=== PATIENT | female | born 1940 | race Caucasian/White ===

== ENCOUNTER → 2017-01-20 | Outpatient (CLI) | payer MEDICARE, BC ==
[~2017-01-20] MED LIST: ARIMIDEX1 MG PO; CYMBALTA60 MG PO; FOSAMAX 70MG TA70 MG PO; GABAPENTIN300 MG PO; REMERON 15M15 MG/TA1 PO; SIMVASTATIN20 MG PO; SONATA5 MG PO; VITAMIN D1000 IU PO; ZOCOR 20MG20 MG PO
== END ==
LOC: MC.RAD 13:40
DX: Z12.31 Encounter for screening mammogram for malignant neoplasm of breast (principal); Z85.3 Personal history of malignant neoplasm of breast

== ENCOUNTER 2017-03-06 00:57 | Emergency (ER) | payer MEDICARE, BC ==
[~2017-03-06] VITALS: Ht 149.9 cm; Wt 92.3 kg
[~2017-03-06 00:57] MED LIST changes: -FOSAMAX 70MG TA70 MG PO; -REMERON 15M15 MG/TA1 PO; -ZOCOR 20MG20 MG PO
[2017-03-06 01:07] VITALS: TEMP 98.7
[2017-03-06] MEDS ORDERED: FOSAMAX 70MG TA70 MG PO (01:17)
[2017-03-06 01:18] LABS: BASO # 0.1 (0.0-0.2); EOS # 0.3 (0.0-0.7); EOS % 3.7 % (0-4.0); GRAN # 3.8 (1.4-6.5); GRAN % 54.4 % (42.2-75.2); LYMPH % 28.8 % (20.0-51.0); MEAN CELL VOLUME 99 fl (80.0-100.0); MEAN CORPUSCULAR HGB CONC 33 g/dl (33.0-37.0); MEAN PLATELET VOLUME 10.8 fl (7.4-10.4); MONO # 0.8 (0.1-0.6); MONO % 11.7 % (1.7-9.3); PLATELET COUNT 224 K/mm3 (130-400); RED BLOOD COUNT 3.46 M/mm3 (4.10-5.30); REDCELL DISTRIBUTION WIDTH-CV 14.3 % (11.5-14.5)
[2017-03-06] MEDS ORDERED: ZOCOR 20MG20 MG PO (01:18)
[2017-03-06] MEDS ORDERED: REMERON 15M15 MG/TA1 PO (01:19)
[2017-03-06 01:25] LABS: HEMATOCRIT 34.3 % (37.0-47.0); HEMOGLOBIN 11.4 g/dl (12.5-16.0); MEAN CORPUSCULAR HEMOGLOBIN 33 pg (27.0-31.0)
[2017-03-06 01:26] LABS: ADJUSTED CALCIUM 9.5 mg/dL (8.4-10.2); ALANINE AMINOTRANSFERASE 20 U/L (9-52); ALBUMIN 3.9 gm/dL (3.5-5.0); ALKALINE PHOSPHATASE 80 U/L (50-136); ANION GAP 11 mmol/L (7-16); BILIRUBIN,TOTAL 0.6 mg/dL (0.0-1.0); BLOOD UREA NITROGEN 17 mg/dL (7-17); CALCIUM 9.4 mg/dL (8.4-10.2); CARBON DIOXIDE 25 mmol/L (22-30); CHLORIDE 103 mmol/L (98-107); GLUCOSE 96 mg/dL (74-106); LIPASE 147 U/L (23-300); POTASSIUM 4.3 mmol/L (3.4-5.0); SODIUM 139 mmol/L (137-145); TOTAL PROTEIN 7.1 gm/dL (6.4-8.2)
[2017-03-06 01:38] LABS: B-TYPE NATRIURETIC PEPTIDE 513 pg/mL (0-450)
[2017-03-06 01:47] LABS: TROPONIN-I < 0.012 ng/mL (0.000-0.034)
[2017-03-06 02:12] VITALS: BP 131/70; PULSE 63
== END 2017-03-06 02:12 | disposition home or self-care (01) ==
LOC: COL.ER 00:57
PROVIDERS: Emergency Medicine
DX: R07.89 Other chest pain (principal); I10 Essential (primary) hypertension; E11.9 Type 2 diabetes mellitus without complications; E78.5 Hyperlipidemia, unspecified; G89.29 Other chronic pain; G95.0 Syringomyelia and syringobulbia

== ENCOUNTER 2017-06-27 15:50 | Emergency (ER) | payer MEDICARE, BC ==
[~2017-06-27] VITALS: Ht 144.8 cm; Wt 89.5 kg
[~2017-06-27 15:50] MED LIST changes: +FOSAMAX 70MG TA70 MG PO; +REMERON 15M15 MG/TA1 PO; +ZOCOR 20MG20 MG PO
[2017-06-27 15:52] VITALS: TEMP 98.4
[2017-06-27 17:53] VITALS: BP 127/66; PULSE 61
== END 2017-06-27 17:56 | disposition home or self-care (01) ==
LOC: COL.ER 15:50
DX: S09.90XA Unspecified injury of head, initial encounter (principal); S00.03XA Contusion of scalp, initial encounter; W01.10XA Fall on same level from slipping, tripping and stumbling with subsequent striking against unspecified object, initial encounter; Y92.009 Unspecified place in unspecified non-institutional (private) residence as the place of occurrence of the external cause; I10 Essential (primary) hypertension; E11.9 Type 2 diabetes mellitus without complications; Q07.01 Arnold-Chiari syndrome with spina bifida